=== PATIENT | female | born 1955 | race Caucasian/White ===

== ENCOUNTER 2018-03-17 11:35 | Inpatient (IN) | payer OTHER, MEDICAID ==
[2018-03-17] MEDS ORDERED: NS 1,000 ML IV ONE (12:34)
[2018-03-17] MEDS ORDERED: ALBUTEROL 3 ML DEYVIAL IH ONE (12:34)
--- NOTE | 2018-03-17 12:43 | CPEKG ---
Heart Rate: 73 RR Interval: 822 P-R Interval: 132 QRSD Interval: 96 QT Interval: 408 QTC Interval: 450 P [place]: 32 QRS [place]: 67 T Wave [place]: 42 EKG Severity - NORMAL ECG - EKG Impression: SINUS RHYTHM Electronically Signed By: Amina Hernandez 17-Mar-2018 13:23:51
[2018-03-17 12:51] LABS: PLATELET COUNT 246 10^3/uL (150-400)
[2018-03-17] MEDS ORDERED: IOPAMIDOL (ISOVUE 370) 100 ML BTL IV ONE ×3 (13:01→16:16)
[2018-03-17] MEDS ORDERED: IPRATROPIUM/ALBUTEROL 3 ML DEYVIAL IH ONE (14:25)
[2018-03-17 14:40] LABS: INR 0.99 (0.83-1.16); PROTIME(PATIENT) 13.3 SEC (12.0-15.0)
--- NOTE | 2018-03-17 15:45 | EDPHY ---
HPI/HX/ROS/PE/MDM Narrative: CHIEF COMPLAINT: Seizure, hypoxia HISTORY OF PRESENT ILLNESS: This is a 63-year-old female presents via EMS after having 2 seizures today. reports that she had a seizure last night during her sleep which resulted in injury to her tongue. She was noted to have some blood on her pillow this morning. Shortly before presentation, while sitting outside on the patient had another seizure resulting in a fall off of her chair to the right hand side. Patient's reports he was more worried about the trauma from the fall the fact that she has had a seizure. She takes carbamazepine for seizures which are normally well controlled. Typically she will have 1-2 seizures a month. Patient also reports a frequent cough. Of note, her O2 saturation was 77% on room air. Patient does have a history of using home O2 at night only. 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 Patient and her deny any fevers or chills, any history of chest pain, no reports of shortness of breath, no history of palpitations, vomiting, diarrhea or urinary complaints. REVIEW OF SYSTEMS: Aside from elements discussed in the HPI, a comprehensive 10-point review of systems was reviewed and is negative. PAST MEDICAL HISTORY: Epilepsy, elevated H&H, back pain SOCIAL HISTORY: Smoker. Here with her . VITAL SIGNS Reviewed by me. Patient saturated on 4 L is 96%. However, patient quickly desaturates when taken off of oxygen. GENERAL: Obese female, irritated about being here in the emergency department, states she feels fine. HEENT: No head trauma. Atraumatic. Eyes: No icterus, no injection. Mouth: Lacerations on bilateral tongue. No acute bleeding. Neck: supple with no adenopathy. No tenderness. LUNGS: Scattered wheezes anteriorly, minimal breath sounds throughout. CARDIAC: Regular rate and rhythm, no rubs, murmurs or gallops. ABDOMEN: Soft, no acute tenderness. Nondistended. BACK: No CVA tenderness. EXTREMITIES: No trauma. Left lower extremity is swollen in comparison to the right. No edema. Range of motion is normal throughout. NEURO: Alert and oriented, grossly nonfocal. SKIN: Warm and dry, no rash. PSYCHIATRIC: Normal mentation, no agitation. ED Course: 63-year-old female with history of epilepsy presenting with 2 seizures today. Of note she is quite hypoxic. Patient has a history of using oxygen at night but never during the day. She has wheezes on examination. Patient received albuterol nebulizer treatment. Head CT and a CT scan of the chest for profound hypoxemia in the setting of polycythemia and to rule out PE was ordered. Patient declines a head CT and a chest CT. H&H: . White count [address]. D-dimer 1.39, troponin negative. Tegretol level 6.2 EKG normal sinus rhythm. Chest x-ray was obtained. This demonstrates significant ground-glass opacification in the right lower lobe consistent with potential mass versus pneumonia versus aspiration. Patient initially was quite reluctant to be admitted to the hospital. Eventually agree to blood cultures, Levaquin, and CT scan of her chest after her D-dimer returned elevated. Patient's course discussed with Dr. Radha Chamberlain. Patient will be admitted to [facility]. MDM: Differential diagnosis of the patient's seizure was considered including but not limited to electrolyte abnormality, alcohol withdrawal, medication noncompliance, head injury, meningitis, encephalitis, and breakthrough seizure. Differential diagnosis for the patient's hypoxemia was considered including but not limited to asthma, COPD, pulmonary emboli, lower respiratory infection, aspiration, and bronchospasm. - Data Points Imaging Results: Imaging Impressions Chest X-Ray 03/17/18 13:15 Impression: 1. Edema versus aspiration or pneumonia in the right lung base. 2. No effusion or failure. 3. Demineralization and age indeterminate compression fracture in the upper lumbar spine. Imaging: I viewed and interpreted images myself Laboratory Results: Laboratory Results 03/17/18 11:45 03/17/18 11:45 03/17/18 03/17/18 03/17/18 13:50 11:45 11:45 WBC RBC Hgb Hct MCV MCH MCHC RDW Plt Count MPV Neut % (Auto) Lymph % (Auto) [place] % (Auto) Eos % (Auto) Baso % (Auto) Nucleat RBC Rel Count Absolute Neuts (auto) Absolute Lymphs (auto) Absolute Monos (auto) Absolute Eos (auto) Absolute Basos (auto) Absolute Nucleated RBC Immature Gran % Immature Gran # PT INR APTT D-Dimer Sodium Potassium Chloride Carbon Dioxide Anion Gap BUN Creatinine Estimated GFR Glucose Calcium Total Bilirubin NT-Pro-B Natriuret Pep 110 pg/mL pg/mL (0-125) Procalcitonin Pending Urine Color YELLOW Urine Appearance HAZY Urine pH 6.0 (5.0-7.5) Ur Specific [place] 1.018 (1.002-1.030) Urine Protein 2+ H (NEGATIVE) Urine Ketones NEGATIVE (NEGATIVE) Urine Blood NEGATIVE (NEGATIVE) Urine Nitrate NEGATIVE (NEGATIVE) Urine Bilirubin NEGATIVE (NEGATIVE) Urine Urobilinogen NEGATIVE EU EU (0.2-1.0) Ur Leukocyte Esterase NEGATIVE (NEGATIVE) Urine RBC 1-3 /hpf /hpf (0-3) Urine WBC 1-3 /hpf /hpf (0-3) Ur Epithelial Cells TRACE /lpf /lpf (NONE-1+) Urine Bacteria TRACE /hpf H /hpf (NONE SEEN) Urine Mucus TRACE /lpf /lpf (NONE-1+) Urine Glucose NEGATIVE (NEGATIVE) Urine Opiates Screen NEGATIVE (NEGATIVE) Urine Barbiturates NEGATIVE (NEGATIVE) Carbamazepine Ur Phencyclidine Scrn NEGATIVE (NEGATIVE) Ur Amphetamine Screen NEGATIVE (NEGATIVE) U Benzodiazepines Scrn NEGATIVE (NEGATIVE) Urine Cocaine Screen NEGATIVE (NEGATIVE) U Marijuana (THC) Screen NEGATIVE (NEGATIVE) 03/17/18 03/17/18 03/17/18 11:45 11:45 11:45 WBC RBC Hgb Hct MCV MCH MCHC RDW Plt Count MPV Neut % (Auto) Lymph % (Auto) [place] % (Auto) Eos % (Auto) Baso % (Auto) Nucleat RBC Rel Count Absolute Neuts (auto) Absolute Lymphs (auto) Absolute Monos (auto) Absolute Eos (auto) Absolute Basos (auto) Absolute Nucleated RBC Immature Gran % Immature Gran # PT 13.3 SEC SEC (12.0-15.0) INR 0.99 (0.83-1.16) APTT 30.9 SEC SEC (23.0-38.0) D-Dimer 1.39 ug/mLFEU H ug/mLFEU (0.00-0.50) Sodium 131 mEq/L L mEq/L (135-145) Potassium 4.7 mEq/L mEq/L (3.3-5.0) Chloride 91 mEq/L L mEq/L (97-110) Carbon Dioxide 26 mEq/l mEq/l (22-31) Anion Gap 14 mEq/L mEq/L (8-16) BUN 14 mg/dL mg/dL (7-23) Creatinine 0.4 mg/dL L mg/dL (0.6-1.0) Estimated GFR > 60 Glucose 124 mg/dL H mg/dL (70-100) Calcium 8.6 mg/dL mg/dL (8.5-10.4) Total Bilirubin 0.5 mg/dL mg/dL (0.1-1.4) NT-Pro-B Natriuret Pep Procalcitonin Urine Color Urine Appearance Urine pH Ur Specific [place] Urine Protein Urine Ketones Urine Blood Urine Nitrate Urine Bilirubin Urine Urobilinogen Ur Leukocyte Esterase Urine RBC Urine WBC Ur Epithelial Cells Urine Bacteria Urine Mucus Urine Glucose Urine Opiates Screen Urine Barbiturates Carbamazepine 6.80 ug/mL ug/mL (4.0-12.0) Ur Phencyclidine Scrn Ur Amphetamine Screen U Benzodiazepines Scrn Urine Cocaine Screen U Marijuana (THC) Screen 03/17/18 11:45 WBC 10.64 10^3/uL H 10^3/uL (3.80-9.50) RBC 5.43 10^6/uL H 10^6/uL (4.18-5.33) Hgb 18.5 g/dL H g/dL (12.6-16.3) Hct 54.8 % H % (38.0-47.0) MCV 100.9 fL H fL (81.5-99.8) MCH 34.1 pg pg (27.9-34.1) MCHC 33.8 g/dL g/dL (32.4-36.7) RDW 14.5 % % (11.5-15.2) Plt Count 246 10^3/uL 10^3/uL (150-400) MPV 9.6 fL fL (8.7-11.7) Neut % (Auto) 68.2 % % (39.3-74.2) Lymph % (Auto) 23.0 % % (15.0-45.0) Chambers % (Auto) 6.8 % % (4.5-13.0) Eos % (Auto) 0.8 % % (0.6-7.6) Baso % (Auto) 0.4 % % (0.3-1.7) Nucleat RBC Rel Count 0.0 % % (0.0-0.2) Absolute Neuts (auto) 7.26 10^3/uL H 10^3/uL (1.70-6.50) Absolute Lymphs (auto) 2.45 10^3/uL 10^3/uL (1.00-3.00) Absolute Monos (auto) 0.72 10^3/uL 10^3/uL (0.30-0.80) Absolute Eos (auto) 0.09 10^3/uL 10^3/uL (0.03-0.40) Absolute Basos (auto) 0.04 10^3/uL 10^3/uL (0.02-0.10) Absolute Nucleated RBC 0.00 10^3/uL 10^3/uL (0-0.01) Immature Gran % 0.8 % % (0.0-1.1) Immature Gran # 0.08 10^3/uL 10^3/uL (0.00-0.10) PT INR APTT D-Dimer Sodium Potassium Chloride Carbon Dioxide Anion Gap BUN Creatinine Estimated GFR Glucose Calcium Total Bilirubin NT-Pro-B Natriuret Pep Procalcitonin Urine Color Urine Appearance Urine pH Ur Specific [place] Urine Protein Urine Ketones Urine Blood Urine Nitrate Urine Bilirubin Urine Urobilinogen Ur Leukocyte Esterase Urine RBC Urine WBC Ur Epithelial Cells Urine Bacteria Urine Mucus Urine Glucose Urine Opiates Screen Urine Barbiturates Carbamazepine Ur Phencyclidine Scrn Ur Amphetamine Screen U Benzodiazepines Scrn Urine Cocaine Screen U Marijuana (THC) Screen Medications Given: Discontinued Medications Albuterol (Proventil Neb) 3 ml IH EDNOW ONE Stop: 03/17/18 12:35 Last Admin: 03/17/18 12:51 Dose: 3 ml Albuterol/Ipratropium (Duoneb) 3 ml IH EDNOW ONE Stop: 03/17/18 14:26 Last Admin: 03/17/18 14:51 Dose: 3 ml Sodium Chloride (Ns) 1,000 mls @ 0 mls/hr IV ONCE ONE; Wide Open PRN Reason: Protocol Stop: 03/17/18 12:35 Last Admin: 03/17/18 12:51 Dose: 1,000 mls Levofloxacin/Dextrose (Levaquin 750 Mg (Premix)) 150 mls @ 100 mls/hr IV EDNOW ONE PRN Reason: Protocol Stop: 03/17/18 15:36 Last Admin: 03/17/18 14:50 Dose: 150 mls General Time Seen by Provider: 03/17/18 11:52 Initial Vital Signs: Initial Vital Signs Temperature (C) 36.5 C 03/17/18 11:35 Heart Rate 89 03/17/18 11:35 Respiratory Rate 16 03/17/18 11:35 Blood Pressure 137/77 H 03/17/18 11:35 O2 Sat (%) 77 L 03/17/18 11:35 O2 Delivery Mode Nasal Cannula O2 (L/minute) 4 Allergies/Adverse Reactions: amoxicillin trihydrate [From Augmentin] Allergy (Severe, Verified 03/17/18 15:05 ) Rash potassium clavulanate [From Augmentin] Allergy (Severe, Verified 03/17/18 15:05) Rash Home Medications: Medication Instructions Recorded Ascorbic Acid [Vitamin C 500 mg 1,000 mg PO DAILY 03/17/18 (*)] Aspirin EC [Aspirin EC 81 mg (*)] 162 mg PO HS 03/17/18 Atorvastatin Calcium [Lipitor 20 20 mg PO HS 03/17/18 mg (*)] Gabapentin [Neurontin 300 MG (*)] 300 mg PO TID@,,20 03/17/18 [place]/Supplements -Info Only 1 ea PO DAILY 03/17/18 Hydrocodone/APAP 5/325 [[place] 1.5 each PO HS 03/17/18 5/325] Multivitamins [Multivitamin (*)] 1 tab PO DAILY 03/17/18 Solifenacin Succinate [Vesicare] 10 mg PO HS 03/17/18 carBAMazepine ER [Carbatrol (*)] 300 mg PO TID@,,03/17/18 Departure - Departure Disposition: [facility] Acute Clinical Impression: Hypoxia, Seizure Pneumonia Qualifiers: Pneumonia type: due to unspecified organism Laterality: right Lung location: lower lobe of lung Qualified Code(s): J18.1 - Lobar pneumonia, unspecified organism Condition: Fair
[2018-03-17] MEDS ORDERED: KETOROLAC 15 MG/1 ML SDV IVP ONE (16:05)
[2018-03-17] MEDS ORDERED: KETOROLAC 15 MG/1 ML SDV ONE (16:06)
[2018-03-17] MEDS ORDERED: ACETAMINOPHEN 325 MG TAB PO PRN (16:10)
[2018-03-17] MEDS ORDERED: ALBUTEROL 3 ML DEYVIAL IH PRN (16:10)
[2018-03-17] MEDS ORDERED: GABAPENTIN 300 MG CAP PO SCH (16:15)
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
[2018-03-17] MEDS ORDERED: LORazepam 2 MG/ML INJ IVP PRN (16:23)
[2018-03-17] MEDS: LIDOCAINE 4%/MENTHOL 1% PATCH TD SCH (18:52)
[2018-03-17] MEDS: GABAPENTIN 400 MG CAP PO SCH ×2 (18:53→20:50)
[2018-03-17] MEDS: carBAMazepine ER 300 MG CAP PO SCH ×2 (18:53→20:49)
[2018-03-17] MEDS: HYDROCODONE/APAP 5/325 TAB PO SCH ×2 (20:50→21:04)
[2018-03-17] MEDS: IPRATROPIUM/ALBUTEROL 3 ML DEYVIAL IH SCH (20:53)
[2018-03-17] MEDS ORDERED: SOLIFENACIN SUCCINATE 5 MG TAB PO SCH (21:00)
[2018-03-17] MEDS ORDERED: PATCH REMOVAL 1 EA PATCH TD SCH (21:00)
[2018-03-17] MEDS ORDERED: ATORVASTATIN CALCIUM 20 MG TAB PO SCH (21:00)
[2018-03-17] MEDS ORDERED: ASPIRIN EC 81 MG TAB PO SCH (21:00)
[2018-03-17] MEDS ORDERED: IBUPROFEN 600 MG TAB PO PRN (22:00)
[2018-03-18] MEDS: IPRATROPIUM/ALBUTEROL 3 ML DEYVIAL IH SCH ×2 (05:06→11:33)
[2018-03-18 05:39] LABS: PLATELET COUNT 199 10^3/uL (150-400)
[2018-03-18] MEDS ORDERED: ENOXAPARIN 40 MG/0.4 ML SYR SC SCH (09:00)
[2018-03-18] MEDS: GABAPENTIN 400 MG CAP PO SCH (09:18)
[2018-03-18] MEDS: carBAMazepine ER 300 MG CAP PO SCH (09:18)
[2018-03-18] MEDS: LIDOCAINE 4%/MENTHOL 1% PATCH TD SCH (09:19)
--- NOTE | 2018-03-18 09:57 | NEUROPROG ---
Assessment: [id number] - Neurology Consult: - CC: Dr. Tyra Murguia consulted neurology for seizures. Results placed in EMR for her review. - HPI: Pt with seizure disorder managed by my colleague, Dr. Tony Felipe, presented to [facility] ER on 03/17/18 after having 3 seizures at home. In the [facility] ER a CXR was concerning for a RLL abnl and O2 sats were low. A chest CTA found a possible adrenal adenoma. Head CT was normal. She had been on carbamazepine ER 300 mg TID and gabapentin 300 mg TID both for seizure prevention. I recommended increasing gabapentin 300 mg TID to 400 mg TID for improved seizure control. I initially saw the patient on 03/18/18. Her neurologic exam was normal. She was counseled not to drive until f/u with Dr. Felipe (pt reported she was not driving) . - PMHx: seizure disorder, COPD with 2nd polycythemia, chiari malformation - SHx: +tobacco use FHx: NC - ROS: Pt denied acute fever, total vision loss, active severe chest pain, respiratory failure, total body severe rash, total bowel/bladder incontinence, psychosis, active seizures, or active bleeding - O: VS reviewed General: Alert Eyes: Fundoscopic exam not able to visualize optic disks CV: Heart RRR, no murmur, no carotid bruit Lungs: Clear to auscultation bilaterally, no rhonchi or rales Neuro: - Mental: . Oriented x person/place/date . concentration appears normal . speech fluency/comprehension normal . memory appears normal . fund of knowledge appear intact - Cranial Nerves: . II: PERRL, VFFTC . III/IV/: EOMI, no nystagmus, normal smooth pursuits, no Ptosis . V: facial sensation intact to LT . VII: face symmetric to eye closure and smile . VIII: hearing intact to conversation . IX/X: uvula raises symmetrically . XI: SCM 5/5 B/L strength . XII: tongue protrudes midline w/nl strength - Motor: . Tone: normal tone in all 4 extremity . Strength: no pronator drift, strength 5/5 throughout (B/L delt, bic, tri, hand bar finish operator, hf/he, df/pf) - Reflexes: B/L patella 2/4 - Sensory: all 4 extremity intact to light touch - Coord: [id number] wnl, SAMMY wnl, [id number] wnl - Gait: deferred - Labs: 03/17/18- Carbamazepine 6.8 03/18/18- CBC wnl, Chem Na 131L Cl 96L Anion gap 4L Cr 0.4L Ca 7.9L - Rads: 03/17/18- Head CT w/o con: negative noncontrast CT of the brain (I personally visualized the images on 03/18/18) - Assessment: 1. Recurrent Seizure Disorder: Last seizure 03/17/18. Normal neurologic exam on 03/18/[address] on 03/17/18. I will increase her gabapentin dosing to better prevent seizures. - 2. Acute on chronic respiratory failure: possible aspiration pneumonia, defer management to hospitalist team. - 3. Possible Adrenal Adenoma: Pt going to be referred to outpatient endocrinology to address - Plan: - Increase gabapentin 300 mg TID to 400 mg TID for seizure prevention - Continue carbamazepine ER 300 mg TID for seizure prevention - No driving and seizure precautions until f/u with Dr. Tony Felipe - F/U with Dr. Tony Felipe 4 weeks after hospital discharge Objective: Vital Signs Temp Pulse Resp BP Pulse Ox 36.7 C 66 17 127/69 H 89 L 03/18/18 08:00 03/18/18 08:00 03/18/18 08:00 03/18/18 08:00 03/18/18 08:00 Microbiology 03/17/18 15:10 Respiratory Panel (PCR) - Final Nasal, Sinus - [place] Viral Transport No Organism Detected Laboratory Results 03/18/18 05:00 03/18/18 05:00 03/17/18 03/18/18 03/19/18 05:59 05:59 05:59 Intake Total 350 Output Total 300 Balance 50 PT 13.3 SEC (12.0-15.0) 03/17/18 11:45 INR 0.99 (0.83-1.16) 03/17/18 11:45 Allergies/Adverse Reactions: amoxicillin trihydrate [From Augmentin] Allergy (Severe, Verified 03/17/18 15:05 ) Rash potassium clavulanate [From Augmentin] Allergy (Severe, Verified 03/17/18 15:05) Rash
--- NOTE | 2018-03-18 10:51 | PDHOMEO2F ---
Home Oxygen Face to Face Home Orders: I certify that a physician or a nurse practitioner or physician's high school assistant principal has had a [id number] encounter with this patient on the date of this order due to the diagnosis listed, which relates to the primary reason the patient requires home oxygen. Alternative treatments have been tried, or considered, and deemed ineffective. It is anticipated that supplemental oxygen will result in improvement with treatment. Home oxygen qualifying diagnosis: COPD SpO2 on room air (%): 77 Frequency of home oxygen needed: continuous Home oxygen liters per minute: 4 Home oxygen delivery device: nasal cannula Concentrator: Yes E-tanks for mobility and back up: Yes If ordering portable O2, is the patient mobile in the home?: Yes I certify that, based on these findings, the home oxygen is medically necessary for this patient for the following length of time. Length of time home oxygen needed: 99 years
--- NOTE | 2018-03-18 11:22 | GDS ---
[f rep st] DISCHARGE SUMMARY ALL DIAGNOSES: 1. Seizure with a history of epilepsy, followed by Dr. Felipe. 2. Acute on chronic hypoxic respiratory failure. 3. Chronic obstructive pulmonary disease. 4. Chronic encephalopathy. 5. 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 6. Tobacco abuse. 7. Hyponatremia. 8. Compression fracture of upper lumbar spine. 9. Adrenal adenoma incidentally found on CAT scan. HOSPITAL COURSE: This is a 63-year-old female with a history of epilepsy, who had a breakthrough seizure. It is unclear exactly what triggered this. She was seen by Neurology, who recommends slight up titration of her gabapentin. She will go from 300 to 400 mg t.i.d. She will continue her Tegretol as well. She will follow up with Dr. Felipe in about 3 weeks[address] not drive until she follows up with him. She had quite low oxygen saturations down to as low as 77% on room air on admission. Initial chest x-ray concerning for right lower lobe pneumonia. Subsequent CT angiogram demonstrated no PE and some right basilar atelectasis. Initial x-ray may have been due to aspiration pneumonitis, which subsequently resolved, versus just atelectasis. She has not been treated on antibiotics. Her procalcitonin was low. She continues to be hypoxic, which I suspect is more of a chronic condition for her. She had previously been using nocturnal oxygen. She also notably has secondary polycythemia, which has required phlebotomies in the past. She is resistant to tobacco cessation. I prescribed her continuous oxygen on discharge. She will follow up with Dr. Cortes for her COPD and chronic oxygen need. I have also given her an albuterol inhaler to use as needed. She had an adrenal adenoma incidentally found on CT scan. I discussed a referral to Endocrinology. She will call to make an appointment with Dr. Fernandez. Patient improved more rapidly than would have been expected given the presentation. BILLING: I spent more than 30 min on the day of discharge coordinating care /[id number]/MODL MTDD
[2018-03-18 11:51] VITALS: BP 116/66
--- NOTE | 2018-03-18 11:58 | PDMN ---
Medical Necessity Medical necessity: est los>2mn for acute on chronic hypoxemic resp failure possibly r/t aspiration pna r/t recent sz vs hemothorax r/t recent fall vs mass ; admit for ongoing eval and management of acute hypoxemia and sz's, with nebs, follow cx's, neuro consult, sz precautions; comorbid chronic encephalopathy, COPD, polycythemia, adrenal adenoma, and lumbar compression fx of indeterminate age; per order and H&P 03/17/18
--- NOTE | 2018-03-18 13:43 | HOSPPROG ---
Hospitalist Progress Note Assessment/Plan: Called by lab for positive blood culture. BCID PCR shows coag negative staph. This is likely a contaminant. She has "boils" in her inguinal region, but she states these are not active currently. She does not want me to examine them. No other clear source of infection. I discussed this with her and her - he will watch her closely for the next few days and bring her to the ED if she has any fevers, confusion or other concerning symptoms. Objective: Vital Signs Temp Pulse Resp BP Pulse Ox 36.9 C 78 16 116/66 90 L 03/18/18 11:49 03/18/18 11:49 03/18/18 11:49 03/18/18 11:49 03/18/18 11:49 Microbiology 03/17/18 14:45 Blood Panel (PCR) - Final Blood Staph Coagulase Negative 03/17/18 15:10 Respiratory Panel (PCR) - Final Nasal, Sinus - [place] Viral Transport No Organism Detected Laboratory Results 03/18/18 05:00 03/18/18 05:00 03/17/18 03/18/18 03/19/18 05:59 05:59 05:59 Intake Total 350 Output Total 300 Balance 50 PT 13.3 SEC (12.0-15.0) 03/17/18 11:45 INR 0.99 (0.83-1.16) 03/17/18 11:45 ICD10 Worksheet Patient Problems: Problems Problem Status Onset Hypoxia Acute Seizure Acute Pneumonia Acute
--- NOTE | 2018-03-18 15:00 | ASMTLACE ---
LACE Length of stay for Answers: 2 days current admission Acuity / Level of Answers: Yes Care: Did the patient have an inpatient admission? Comorbidities - select Answers: Chronic pulmonary disease all that apply Other Notes: Epilepsy # of Emergency department Answers: 1-2 visits in the last 6 months Score: 9 Date Signed: 03/18/2018 02:59 PM Electronically Signed By:RIK Reza
--- NOTE | 2018-03-18 15:01 | ASMTCMCOM ---
CM Note CM Note Notes: Pt medically stable for d/c, no CM d/c needs identified. Date Signed: 03/18/2018 03:00 PM Electronically Signed By:RIK Reza
== END 2018-03-18 16:16 | disposition home or self-care (01) | DRG 100 ==
LOC: EDUNIT# → F3N 16:40
PROVIDERS: ADMIT Internal Medicine; ATTEND Internal Medicine
DX: G40.909 Epilepsy, unspecified, not intractable, without status epilepticus (principal); J96.21 Acute and chronic respiratory failure with hypoxia; E87.1 Hypo-osmolality and hyponatremia; J44.9 Chronic obstructive pulmonary disease, unspecified; D75.1 Secondary polycythemia; Z66 Do not resuscitate; F17.210 Nicotine dependence, cigarettes, uncomplicated; M48.56XA Collapsed vertebra, not elsewhere classified, lumbar region, initial encounter for fracture; D35.00 Benign neoplasm of unspecified adrenal gland
CPT/HCPCS: 80305; 97161-GP; G8978-GP-CJ; G8979-GP-CI; J1650; J1885; J1956; J7613; Q9967

== ENCOUNTER 2018-08-30 20:21 | Emergency (ER) | payer OTHER, MEDICAID ==
--- NOTE | 2018-08-30 20:29 | EDPHY ---
H & P Time Seen by Provider: 08/30/18 20:29 - Medical/Surgical History Hx Asthma: No Hx Chronic Respiratory Disease: Yes Hx Diabetes: No Hx Cardiac Disease: No Hx Renal Disease: No Hx Cirrhosis: No Hx Alcoholism: No Hx HIV/AIDS: No Hx Splenectomy or Spleen Trauma: No Other PMH: seizure, low back pain. high cholesterol, weak bladder, polycythemia , osteoarthritis, SUKUMAR, COPD - Social History Smoking Status: Current every day smoker Constitutional: Initial Vital Signs Temperature (C) 36.7 C 08/30/18 20:25 Heart Rate 85 08/30/18 20:25 Respiratory Rate 18 08/30/18 20:25 Blood Pressure 127/80 H 08/30/18 20:25 O2 Sat (%) 94 08/30/18 20:25 O2 Delivery Mode Nasal Cannula O2 (L/minute) 3 Allergies/Adverse Reactions: amoxicillin trihydrate [From Augmentin] Allergy (Severe, Verified 08/30/18 20:33 ) Rash potassium clavulanate [From Augmentin] Allergy (Severe, Verified 08/30/18 20:33) Rash Home Medications: Medication Instructions Recorded Ascorbic Acid [Vitamin C 500 mg 1,000 mg PO DAILY 03/17/18 (*)] Aspirin EC [Aspirin EC 81 mg (*)] 162 mg PO HS 03/17/18 Atorvastatin Calcium [Lipitor 20 20 mg PO HS 03/17/18 mg (*)] Herbals/Supplements -Info Only 1 ea PO DAILY 03/17/18 Hydrocodone/APAP 5/325 [[place] 1.5 each PO HS 03/17/18 5/325 (*)] Multivitamins [Multivitamin (*)] 1 tab PO DAILY 03/17/18 Solifenacin Succinate [Vesicare] 10 mg PO HS 03/17/18 carBAMazepine ER [Carbatrol (*)] 300 mg PO TID@10,16,20 03/17/18 Albuterol [Ventolin Hfa Inhaler] 200 puffs IH BID #1 mdi 03/18/18 Gabapentin [Neurontin 400 MG (*)] 400 mg PO TID #90 cap 03/18/18 Medical Decision Making ED Course/Re-evaluation: CHIEF COMPLAINT: Seizure HISTORY OF PRESENT ILLNESS: This patient is a 63 y/o female with history of seizures arrives via EMS following two witnessed tonic-clonic seizures. She is now completely alert and conversant. She has positive tongue bite. She states she has not missed any doses of her seizure medications. She states seizures are chronic for her and she prefers to go home and take her regular medications this evening. REVIEW OF SYSTEMS: A comprehensive 10 system review of systems is otherwise negative aside from elements mentioned in the history of present illness and medical decision making. PHYSICAL EXAM: HR, BP, O2 Sat, RR. Temp noted General Appearance: Alert, well hydrated, appropriate, and non-toxic appearing. Head: Atraumatic without scalp tenderness or obvious injury Eyes: Pupils equal, round, reactive to light and accommodation, EOMI, no trauma , no injection. Ears: Clear bilaterally, no perforation, normal landmarks Nose: Atraumatic, no rhinorrhea, clear. Throat: Left lateral tongue bite. There is no erythema or exudates, no lesions, normal tonsils, mucus membranes moist. Neck: Supple, nontender, no lymphadenopathy. Respiratory: No retractions, no distress, no wheezes, and no accessory muscle use. Lungs are clear to auscultation bilaterally. Cardiovascular: Regular rate and rhythm, no murmurs, rubs, or gallops. Bilateral carotid, radial, dorsalis pedis, and posterior tibial pulses intact. Good capillary refill all extremities. Gastrointestinal: Abdomen is soft, nontender, non-distended, no masses, no rebound, no guarding, no peritoneal signs. Musculoskeletal: Normal active ROM of all extremities, atraumatic. Neurological: Alert, appropriate, and interactive. Nonfocal neuro exam. Skin: No rashes, good turgor, no nodules on palpation. Past medical history: Seizures, low back pain, hyperlipidemia, weak bladder, polycythemia, osteoarthritis, SUKUMAR, COPD Past surgical history: Noncontributory Family history: Noncontributory Social history: Significant other at bedside. Lives in [place]. DIFFERENTIAL DIAGNOSIS: The differential diagnosis for the patient's seizure included but was not limited to electrolyte abnormality, alcohol withdrawal, medication noncompliance , head injury, EVENT SET UP SPECIALIST structural abnormality, and break through seizure. MEDICAL DECISION MAKING: This patient is a 63 y/o female with a long history of recurrent seizures. She currently has good decision-making capacity. Prefers to go home and take her regular seizure medications at home. She declines any further evaluation or treatment here at this time. Plan to discharge home in good condition. Follow up and return precautions discussed. She is comfortable with this plan. Departure - Departure Disposition: Home, Routine, Self-Care Clinical Impression: Seizure disorder Condition: Good Instructions: Recurrent Seizures in Adults (ED) Additional Instructions: Please follow up with your primary care provider or neurologist in the next week for further evaluation and discussion of your medication regimen. Continue taking your anti-seizure medications as prescribed. Return to the Emergency Department for fever, headache, numbness, weakness, recurrent seizure or other concerns. Referrals: Gila Cervantes MD [Medical Doctor] - As per Instructions Report Scribed for: Mike Vee Report Scribed by: Veronica Sahni Date of Report: 08/30/18 Time of Report: 20:46
[2018-08-30 21:13] VITALS: BP 157/99
== END 2018-08-30 21:03 | disposition home or self-care (01) ==
LOC: EDUNIT#
DX: G40.909 Epilepsy, unspecified, not intractable, without status epilepticus (principal)